=== PATIENT | female | born 1980 | race Caucasian/White ===

== ENCOUNTER 2019-09-30 19:37 | Emergency (ER) | payer MEDICAID ==
[~2019-09-30] VITALS: Ht 162.6 cm; Wt 72.7 kg
--- NOTE | 2019-09-30 20:10 | NUR ---
Patient brought back to room 21
[2019-09-30 20:44] LABS: BASOPHILS % (AUTO) 0.5 % (0-1); EOSINOPHILS % (AUTO) 0.4 % (0-6); HEMATOCRIT 42.5 % (35.0-45.0); HEMOGLOBIN 14.7 g/dl (12.0-16.0); LYMPHOCYTES # (AUTO) 1.2 X10'3 (1.1-4.8); LYMPHOCYTES % (AUTO) 13.2 % (21-51); MEAN CORPUSCULAR HEMOGLOBIN 32.6 PG (27.0-31.0); MEAN CORPUSCULAR HGB CONC 34.6 g/dL (33.0-36.5); MEAN CORPUSCULAR VOLUME 94.2 FL (78-98); MEAN PLATELET VOLUME 8.8 FL (7.4-10.4); MONOCYTES # (AUTO) 1.2 X10'3 (0-0.9); MONOCYTES % (AUTO) 12.9 % (2-12); NEUTROPHILS # (AUTO) 6.9 X10'3 (1.8-7.7); PLATELET COUNT 239 X10'3 (140-440); RED BLOOD COUNT 4.52 X10'6 (4.20-5.60); RED CELL DISTRIBUTION WIDTH 14.3 % (11.5-14.5); WHITE BLOOD COUNT 9.4 X10'3 (4.5-11.0)
[2019-09-30] MEDS: LORazepam 1 MG tablet PO ONE ×2 (20:53→21:15)
[2019-09-30 20:59] LABS: ALANINE AMINOTRANSFERASE 16 U/L (12-78); ALBUMIN 4.4 G/DL (3.4-5.0); ALBUMIN/GLOBULIN RATIO 1.4 (1.1-1.5); ALKALINE PHOSPHATASE 74 IU/L (46-116); ANION GAP 14 (8-16); ASPARTATE AMINO TRANSFERASE 18 U/L (10-37); BILIRUBIN,TOTAL 0.8 MG/DL (0.1-1.0); BLOOD UREA NITROGEN 3 MG/DL (7-18); BUN/CREATININE RATIO 3.7 (6.6-38.0); CALCIUM 9.7 MG/DL (8.5-10.1); CHLORIDE 96 MMOL/L (99-107); CREATININE 0.81 MG/DL (0.40-0.90); GLUCOSE 100 MG/DL (70-104); POTASSIUM 3.1 MMOL/L (3.5-5.1); SODIUM 135 MMOL/L (135-145); TOTAL CARBON DIOXIDE 25.3 MMOL/L (24-32); TOTAL PROTEIN 7.5 G/DL (6.4-8.2); eGFR 78 ML/MIN
[2019-09-30 21:08] LABS: ETHANOL < 0.010 GM/DL (0.0-0.010)
[2019-09-30] MEDS ORDERED: potassium Cl 20 mEq SR tablet PO STA (21:14)
--- NOTE | 2019-09-30 22:22 | NUR ---
Per patient, she states she lives with family, but would not tell us who she is living with. When asked why she is here she gets very anxious and respirations increase and she just states "trauma". Pt does not open up to any details of her trauma and when asked if this trauma happened recently, she shakes her head no. She does not have any phone numbers of family or friends memorized and says the numbers are in her cell phone, but she did not come in with a cell phone.
--- NOTE | 2019-09-30 22:32 | NUR ---
Patient information was found by FABIAN Gautam through [facility]'s database and there is an address listed as [address] but it is unknown if this is a current address. The only phone number listed for the patient through [facility]'s website is [phone]. We attempted to call this number, but it goes straight to voicemail and the voicemail is registered under the patients name.
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
[2019-10-01 01:49] LABS: CLARITY,URINE CLEAR (Clear); COLOR,URINE YELLOW (Yellow); GLUCOSE, URINE NEGATIVE (Neg); KETONES,URINE 15 mg/dl (Neg); LEUKOCYTE ESTERASE ,URINE NEGATIVE (Neg); NITRITES, URINE NEGATIVE (Neg); OCCULT BLOOD,URINE NEGATIVE (Neg); PROTEIN,URINE NEGATIVE (Neg); URINE HCG NEGATIVE (NEG); UROBILINOGEN,URINE 0.2 E.U/dL (0.2-1.0)
[2019-10-01 01:54] LABS: UA COLLECTION TYPE CLN CATCH MIDSTREAM
[2019-10-01 02:03] LABS: URINE AMPHETAMINE SCREEN NEGATIVE (Neg); URINE BARBITUATE SCREEN NEGATIVE (Neg); URINE BENZODIAZEPINES SCREEN NEGATIVE (Neg); URINE CANNABINOID SCREEN POSITIVE (Neg); URINE COCAINE SCREEN NEGATIVE (Neg); URINE METHADONE SCREEN NEGATIVE (Neg); URINE OPIATE SCREEN NEGATIVE (Neg); URINE PHENCYCLIDINE SCREEN NEGATIVE (Neg)
[2019-10-01] MEDS ORDERED: CHOL400T14 PO (04:37)
[2019-10-01] MEDS ORDERED: SPIR50TA5 PO (04:37)
[2019-10-01] MEDS ORDERED: CHOL10008 PO (05:29)
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
[2019-10-01] MEDS ORDERED: vitamin D (cholecalciferol) 1,000 unit tablet PO SCH (08:00)
[2019-10-01] MEDS ORDERED: spironolactone 50 MG tablet PO SCH (08:00)
--- NOTE | 2019-10-01 09:00 | NUR ---
Patient ate breakfast and then went back to sleep.
--- NOTE | 2019-10-01 11:38 | NUR ---
Lying supine asleep.
[2019-10-01 13:30] VITALS: BP 112/66
== END 2019-10-01 13:33 | disposition home or self-care (01) ==
LOC: ER 19:39
DX: F41.9 Anxiety disorder, unspecified (principal); F12.90 Cannabis use, unspecified, uncomplicated; F17.200 Nicotine dependence, unspecified, uncomplicated; Z88.0 Allergy status to penicillin
CPT/HCPCS: 36415; 80053; 80305; 80320; 81003; 81025; 84443; 85025; 99284

== ENCOUNTER 2020-01-13 15:20 | Emergency (ER) | payer MEDICAID ==
[~2020-01-13] VITALS: Ht 162.6 cm; Wt 68.2 kg
[~2020-01-13 15:20] MED LIST: CHOL10008 PO; SPIR50TA5 PO
--- NOTE | 2020-01-13 16:00 | NUR ---
Patient follows commands but will only answer a few questions verbally other answers are answered with hand guestures. [facility] was called to see about talking to her provider she sees there to get more information on patient. Release of information was faxed to facility to recieve records on patient and i was told by personal at [facility] that patients current provider was going to call us and talk to Bryce baker to provide more information, since patient is not providing any information.
[2020-01-13 16:39] LABS: BASOPHILS % (AUTO) 0.5 % (0-1); EOSINOPHILS # (AUTO) 0.1 X10'3 (0-0.9); EOSINOPHILS % (AUTO) 1.6 % (0-6); HEMATOCRIT 42.8 % (35.0-45.0); HEMOGLOBIN 14.6 g/dl (12.0-16.0); LYMPHOCYTES # (AUTO) 1.7 X10'3 (1.1-4.8); LYMPHOCYTES % (AUTO) 19.7 % (21-51); MEAN CORPUSCULAR HEMOGLOBIN 32.8 PG (27.0-31.0); MEAN CORPUSCULAR HGB CONC 34.1 g/dL (33.0-36.5); MEAN CORPUSCULAR VOLUME 96.1 FL (78-98); MEAN PLATELET VOLUME 8.7 FL (7.4-10.4); MONOCYTES # (AUTO) 0.8 X10'3 (0-0.9); MONOCYTES % (AUTO) 8.6 % (2-12); NEUTROPHILS # (AUTO) 6.2 X10'3 (1.8-7.7); NEUTROPHILS % (AUTO) 69.6 % (42-75); PLATELET COUNT 203 X10'3 (140-440); RED BLOOD COUNT 4.46 X10'6 (4.20-5.60); RED CELL DISTRIBUTION WIDTH 13.9 % (11.5-14.5); WHITE BLOOD COUNT 8.9 X10'3 (4.5-11.0)
[2020-01-13 16:43] LABS: CLARITY,URINE CLEAR (Clear); COLOR,URINE STRAW (Yellow); GLUCOSE, URINE NEGATIVE (Neg); KETONES,URINE TRACE mg/dl (Neg); LEUKOCYTE ESTERASE ,URINE NEGATIVE (Neg); NITRITES, URINE NEGATIVE (Neg); OCCULT BLOOD,URINE NEGATIVE (Neg); PH,URINE 6.5 (4.8-8.0); PROTEIN,URINE NEGATIVE (Neg); UROBILINOGEN,URINE 0.2 E.U/dL (0.2-1.0)
[2020-01-13 16:47] LABS: UA COLLECTION TYPE CLN CATCH MIDSTREAM
[2020-01-13 16:48] LABS: URINE HCG NEGATIVE (NEG)
[2020-01-13 16:49] LABS: URINE AMPHETAMINE SCREEN NEGATIVE (Neg); URINE BARBITUATE SCREEN NEGATIVE (Neg); URINE BENZODIAZEPINES SCREEN NEGATIVE (Neg); URINE CANNABINOID SCREEN POSITIVE (Neg); URINE COCAINE SCREEN NEGATIVE (Neg); URINE METHADONE SCREEN NEGATIVE (Neg); URINE OPIATE SCREEN NEGATIVE (Neg); URINE PHENCYCLIDINE SCREEN NEGATIVE (Neg)
[2020-01-13 16:53] LABS: ALANINE AMINOTRANSFERASE 20 U/L (12-78); ALBUMIN 3.9 G/DL (3.4-5.0); ALBUMIN/GLOBULIN RATIO 1.3 (1.1-1.5); ALKALINE PHOSPHATASE 63 IU/L (46-116); ANION GAP 7 (8-16); ASPARTATE AMINO TRANSFERASE 21 U/L (10-37); BILIRUBIN,TOTAL 0.5 MG/DL (0.1-1.0); BLOOD UREA NITROGEN 5 MG/DL (7-18); BUN/CREATININE RATIO 6.9 (6.6-38.0); CALCIUM 8.9 MG/DL (8.5-10.1); CHLORIDE 98 MMOL/L (99-107); CREATININE 0.72 MG/DL (0.40-0.90); GLUCOSE 121 MG/DL (70-104); POTASSIUM 3.5 MMOL/L (3.5-5.1); SODIUM 135 MMOL/L (135-145); TOTAL CARBON DIOXIDE 29.6 MMOL/L (24-32); eGFR 89 ML/MIN
--- NOTE | 2020-01-13 17:14 | NUR ---
patients boyfriend is Rl Aviles phone number [phone], mother Ghada Martinez [phone]
[2020-01-13 17:20] LABS: ACETAMINOPHEN < 2.0 UG/ML (10-30); ETHANOL < 0.010 GM/DL (0.0-0.010); VALPROATE < 3.0 UG/ML (50-100)
[2020-01-13] MEDS ORDERED: haloperidol lactate 5mg/ml inj IM ONE (17:55)
[2020-01-13] MEDS ORDERED: diphenhydrAMINE 50 mg/ml inj IM ONE (18:15)
--- NOTE | 2020-01-13 18:39 | NUR ---
The patient is disorganized, fearful and making bizarre poses. She appears to be responding to internal stimuli.
--- NOTE | 2020-01-13 19:19 | NUR ---
The patient is currently asleep on her bed.
--- NOTE | 2020-01-13 21:13 | NUR ---
The patient appears to be sleeping
--- NOTE | 2020-01-14 03:54 | NUR ---
The patient appears to have been sleeping but has been up to the bathroom several times.
--- NOTE | 2020-01-14 06:30 | NUR ---
Assumed pt care. The pt is laying on her back and appears to be sleeping soundly. No needs identified at this time.
[2020-01-14 11:43] VITALS: BP 122/72
== END 2020-01-14 10:15 | disposition home or self-care (01) ==
LOC: ER 15:20
DX: F23 Brief psychotic disorder (principal); F41.9 Anxiety disorder, unspecified; F12.90 Cannabis use, unspecified, uncomplicated; Z88.0 Allergy status to penicillin; Z79.899 Other long term (current) drug therapy
CPT/HCPCS: 36415; 80053; 80164; 80178; 80305; 80320; 80329; 81003; 81025; 84443; 85025; 96372; 99284; J1200; J1630

== ENCOUNTER 2021-05-22 04:10 | Emergency (ER) | payer MEDICAID ==
[~2021-05-22] VITALS: Ht 170.2 cm; Wt 65.9 kg
--- NOTE | 2021-05-22 07:05 | NUR ---
RN walked patient back to bed 27. Patient was disorganized, tearful and talking to herself. Continue to monitor.
--- NOTE | 2021-05-22 07:45 | NUR ---
Dr Huerta evaluating patient. Patient is having a conversation with her voices. Continue to monitor.
[2021-05-22 08:27] LABS: BASOPHILS % (AUTO) 0.3 % (0-1); EOSINOPHILS # (AUTO) 0.1 X10'3 (0-0.9); EOSINOPHILS % (AUTO) 0.9 % (0-6); HEMATOCRIT 43.6 % (35.0-45.0); HEMOGLOBIN 15.1 g/dl (12.0-16.0); LYMPHOCYTES # (AUTO) 1.7 X10'3 (1.1-4.8); MEAN CORPUSCULAR HEMOGLOBIN 33.5 PG (27.0-31.0); MEAN CORPUSCULAR HGB CONC 34.5 g/dL (33.0-36.5); MEAN PLATELET VOLUME 8.9 FL (7.4-10.4); MONOCYTES # (AUTO) 0.9 X10'3 (0-0.9); MONOCYTES % (AUTO) 9.4 % (2-12); NEUTROPHILS # (AUTO) 6.7 X10'3 (1.8-7.7); NEUTROPHILS % (AUTO) 71.4 % (42-75); PLATELET COUNT 170 X10'3 (140-440); RED CELL DISTRIBUTION WIDTH 13.3 % (11.5-14.5); WHITE BLOOD COUNT 9.4 X10'3 (4.5-11.0)
[2021-05-22 08:44] LABS: ALANINE AMINOTRANSFERASE 29 U/L (12-78); ALBUMIN 2.9 G/DL (3.4-5.0); ALBUMIN/GLOBULIN RATIO 0.7 (1.1-1.5); ALKALINE PHOSPHATASE 59 IU/L (46-116); ANION GAP 12 (8-16); ASPARTATE AMINO TRANSFERASE 22 U/L (10-37); BILIRUBIN,TOTAL 0.9 MG/DL (0.1-1.0); BLOOD UREA NITROGEN 8 MG/DL (7-18); BUN/CREATININE RATIO 11.6 (6.6-38.0); CALCIUM 8.4 MG/DL (8.5-10.1); CHLORIDE 104 MMOL/L (99-107); CREATININE 0.69 MG/DL (0.40-0.90); GLUCOSE 91 MG/DL (70-104); SODIUM 141 MMOL/L (135-145); TOTAL CARBON DIOXIDE 25.3 MMOL/L (24-32); eGFR > 90 ML/MIN
[2021-05-22 08:53] LABS: ETHANOL < 0.010 GM/DL (0.0-0.010)
--- NOTE | 2021-05-22 08:55 | NUR ---
Patient sleeping on her right side. No distress observed. Continue to monitor.
--- NOTE | 2021-05-22 09:16 | NUR ---
Patient's dad called and stated patient has schizophrenia and is not taking medication. Patient has been up since midnight talking non-stop. Father states that when he was in the lobby with his daughter she tried to leave and stated to her father that God told her to go get her daughter and take her to [facility]. Patient's daughter is 8 years old and lives with her mom and patient's parents. This statement concerned her father. Father, [place] Martinez, .
--- NOTE | 2021-05-22 09:20 | NUR ---
Zion, Mt Martinez, .
--- NOTE | 2021-05-22 10:12 | NUR ---
RN collected CC and sent to lab. Patient is sitting up and eating breakfast. No distress observed. Continue to monitor.
[2021-05-22 10:17] LABS: URINE HCG NEGATIVE (NEG)
[2021-05-22 10:18] LABS: CLARITY,URINE CLOUDY (Clear); COLOR,URINE YELLOW (Yellow); GLUCOSE, URINE NEGATIVE (Neg); KETONES,URINE 40 mg/dl (Neg); LEUKOCYTE ESTERASE ,URINE NEGATIVE (Neg); NITRITES, URINE NEGATIVE (Neg); OCCULT BLOOD,URINE NEGATIVE (Neg); PROTEIN,URINE TRACE mg/dl (Neg); UROBILINOGEN,URINE 0.2 E.U/dL (0.2-1.0)
[2021-05-22 10:19] LABS: UA COLLECTION TYPE CLN CATCH MIDSTREAM
[2021-05-22 10:21] LABS: URINE AMPHETAMINE SCREEN NEGATIVE (Neg); URINE BARBITUATE SCREEN NEGATIVE (Neg); URINE BENZODIAZEPINES SCREEN NEGATIVE (Neg); URINE CANNABINOID SCREEN POSITIVE (Neg); URINE COCAINE SCREEN NEGATIVE (Neg); URINE METHADONE SCREEN NEGATIVE (Neg); URINE OPIATE SCREEN NEGATIVE (Neg); URINE PHENCYCLIDINE SCREEN NEGATIVE (Neg)
[2021-05-22 10:27] LABS: MUCUS STRANDS MANY /LPF (Neg); SQUAMOUS EPITHELIAL CELL,UR MANY /LPF (FEW)
[2021-05-22 10:28] LABS: TRANSITIONAL EPI CELLS,URINE FEW /HPF
[2021-05-22 10:29] LABS: BACTERIA,URINE FEW /HPF (Neg); RBC,URINE NONE SEEN /HPF (0-2); WBC,URINE 0-4 /HPF (0-4)
--- NOTE | 2021-05-22 10:45 | NUR ---
At 1040 patient wanted to walk. RN allowed patient to walk and almost immediately patient ran out the old security hallway then out the door to [facility]. RN ran after her but she was gone. RN called [employer] and the father to look for her. Father is very concerned about patient and safety of their granddaughter.
[2021-05-22] MEDS ORDERED: haloperidol lactate 5mg/ml inj ONE (11:23)
[2021-05-22] MEDS ORDERED: LORazepam 2 mg/ml vial ONE (11:24)
[2021-05-22] MEDS ORDERED: diphenhydrAMINE 50 mg/ml inj ONE (11:24)
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
--- NOTE | 2021-05-22 12:00 | NUR ---
1130 [employer] called and brought patient back in handcuffs. Patient fighting and kicking. Patient brought back to ED OF bed 23. RN received an order for B52 from Dr Huerta. FABIAN Veliz prepared the medication and gave it I.M. RN, techs and Security assisted in changing patient's clothes. RN allowed patient to keep her underwear and her sports bra on her person. Green scrubs were placed on patient. Patient screaming about God and allowing her to get her daughter to heaven.
--- NOTE | 2021-05-22 13:45 | NUR ---
Patient pulling and kicking at times. Behavior is not consistent and unable to release restraints at this time. Continue to monitor.
--- NOTE | 2021-05-22 15:04 | NUR ---
Patient in restraints from 1210 to 1420. Patient is not sleeping on left side. No distress observed. Initially patient kept refusing water. Eventually patient would drink water from the straw. Patient would sit up and thrash and lay back down and do it again (after her LE restraints were removed). Patient is now sleeping. Will reassess behavior once she wakes up. Continue to monitor.
[2021-05-22] MEDS ORDERED: LORazepam 1 MG tablet PO PRN (17:50)
--- NOTE | 2021-05-22 19:01 | NUR ---
Pt was sleeping at shift change she woke up ate most of dinner tray. Attempt to engage her in conversation unsuccessful. Pt turned her back and closed her eyes.
[2021-05-22] MEDS ORDERED: haloperidol 5mg tablet PO SCH (21:00)
--- NOTE | 2021-05-22 22:07 | NUR ---
Pt woke up briefly. Refused routine Haldol and PRN Ativan. Requested warm blanket. Went bake to sleep.
--- NOTE | 2021-05-23 00:41 | NUR ---
Pt sleeping with brief periods of being awake standing by side of bed then laying back down and going to sleep. Continues to refuse Haldol.
--- NOTE | 2021-05-23 03:18 | NUR ---
PT RESTING WITH PERIODIC WAKEFULNESS, SITTING UP AND TURNING OVER. PT STAYING IN BED
--- NOTE | 2021-05-23 05:11 | NUR ---
Awake for about 30 minutes at 0330 pt saying "I shouldn't be here they had no reason to keep me here" Explained to pt that she was a a 5150 to keep her safe. Pt reluctantly accepted explanation declined medications and went back to sleep. She is awake now sitting up on bed no s/s of agitation.
[2021-05-23 05:51] VITALS: BP 113/73
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
== END 2021-05-23 09:07 ==
LOC: ER 04:10
DX: F29 Unspecified psychosis not due to a substance or known physiological condition (principal); R41.82 Altered mental status, unspecified; F41.9 Anxiety disorder, unspecified; F12.90 Cannabis use, unspecified, uncomplicated; F43.10 Post-traumatic stress disorder, unspecified; Z72.89 Other problems related to lifestyle; Z88.0 Allergy status to penicillin; Z79.899 Other long term (current) drug therapy
CPT/HCPCS: 36415; 80053; 80305; 80320; 81001; 81025; 84443; 85025; 96372; 99285; J1200; J1630; J2060